=== PATIENT | male | born 2000 | race Asian ===

== ENCOUNTER 2023-06-13 18:58 | Emergency (ER) | payer BC ==
[~2023-06-13] VITALS: Ht 182.9 cm; Wt 136.1 kg
[2023-06-13 20:54] VITALS: BP 116/70; TEMP 98.2
== END 2023-06-13 20:54 | disposition home or self-care (01) ==
LOC: EDBD 18:58 → ED 18:58
DX: R50.9 Fever, unspecified (principal); R05.9 Cough, unspecified; R51.9 Headache, unspecified; R11.2 Nausea with vomiting, unspecified; R19.7 Diarrhea, unspecified; J10.1 Influenza due to other identified influenza virus with other respiratory manifestations
CPT/HCPCS: 87502; 87635; 87651; 99283; U0003